=== PATIENT | male | born 1965 | race Caucasian/White ===

== ENCOUNTER 2018-01-21 16:01 | Outpatient (CLI) | payer BC ==
--- NOTE | 2018-01-22 08:59 | MRI ---
MRI OF THE RIGHT SHOULDER WITHOUT CONTRAST: Date: 01/21/18 INDICATION: Rotator cuff repair 9 years ago with concern for right shoulder reinjury. TECHNIQUE: Multiplanar, multisequence MR images were obtained of the right shoulder without IV contrast. No radi ographic or MR comparisons are available. FINDINGS: There is susceptibility artifact involving the greater tuberosity consistent with suture anchors from prior rotator cuff repair. There is a partial thickness high grade articular surface tear involving the posterior supraspinatus and anterior infraspinatus within the region of the conjoined tendon at t he footprint measuring 0.7 x 0.5 cm. This involves approximately 75% of the tendon thickness. There i s also a partial thickness Type II SLAP tear involving the posterior superior aspect of the glenoid l abrum. The glenoid articular surface appears within normal limits. No paralabral cyst is identified. There is mild AC joint osteoarthrosis. The biceps tendon is located. No muscular atrophy is evident. There is mild AC joint hypertrophy. IMPRESSION: 1. High grade partial thickness articular surface tear of the conjoined tendon at the footprint. 2. Type II SLAP tear involving the posterior superior aspect of the glenoid labrum. 3. Mild AC joint osteoarthrosis. POS: [facility]
== END 2018-01-21 16:02 | disposition home or self-care (01) ==
LOC: TBSIIMAG 16:01
PROVIDERS: ATTEND Orthopaedic Surgery
DX: M25.511 Pain in right shoulder (principal); S43.401A Unspecified sprain of right shoulder joint, initial encounter; M24.111 Other articular cartilage disorders, right shoulder

== ENCOUNTER 2019-09-01 14:43 | Outpatient (CLI) | payer BC ==
--- NOTE | 2019-09-01 15:28 | RAD ---
MRI CLEARANCE: RADIOGRAPH SKULL 1 VIEW DATE: 09/01/2019. HISTORY: A 54-year-old male scheduled for MRI. History of metallic foreign body removed from eye. FINDINGS: Single Water's view demonstrates no metallic foreign body in the orbits. IMPRESSION: The patient is cleared for MRI. POS: [facility]
--- NOTE | 2019-09-01 15:59 | MRI ---
MRI LUMBAR SPINE WITHOUT CONTRAST: INDICATIONS: Lumbar stenosis. Neurogenic claudication. COMPARISON: None. FINDINGS: There appear to be ribs present at what will be labeled as T12. This leaves five lumbar vertebrae how ever L5 is transitional. The lumbar vertebrae maintain normal height and alignment. There is mild loss of disk space at L5-S1. The other disk spaces are preserved. Slight anterolisthesis at L4-L5. At T12-L1 mild disk bulge flattens the thecal sac. No central canal or foraminal stenosis. At L1-L2 no significant disk bulge. Mild facet arthrosis. No central canal or foraminal stenosis. At L2-L3 no disk bulge, mild face arthrosis, no central canal or foraminal stenosis. At L3-L4 mild diffuse disk bulge flattens the thecal sac. There is evidence of a small annular fissur e. Mild to moderate facet hypertrophy. No significant central canal or foraminal stenosis. At L4-L5 there is slight anterolisthesis noted above. Mild diffuse disk bulge. Prominent facet hypert rophy at this level. No significant central canal or foraminal stenosis. At L5-S1 there is no significant disk bulge. L5 is transitional, as noted above. Facet hypertrophy is noted. IMPRESSION: 1. L5 is a transitional vertebra. 2. Slight anterolisthesis of L4-L5 with mild diffuse disk bulge. Very prominent facet hypertrophy at this level. There is contact with the exiting right L4 nerve root within the foramina from the promin ent facet hypertrophy. No significant foraminal stenosis. 3. See findings at other levels as described above. POS: [facility]
== END 2019-09-01 14:44 | disposition home or self-care (01) ==
LOC: BICMRI 14:43
PROVIDERS: ATTEND Specialist
DX: M48.061 Spinal stenosis, lumbar region without neurogenic claudication (principal); M43.16 Spondylolisthesis, lumbar region; M48.8X6 Other specified spondylopathies, lumbar region
CPT/HCPCS: 70210; 72148

== ENCOUNTER 2020-06-28 10:02 | Outpatient (CLI) | payer BC ==
--- NOTE | 2020-06-28 10:53 | CT ---
CT Abdomen W WO Con History: Liver lesion Comparison: Thoracic spine MRI July 02, 2020. Abdomen pelvis CT 2011 Findings: Lung bases are clear. No pericardial effusion. Diffuse hepatic steatosis. Corresponding to the mass within hepatic segment 6 is a well-defined flash filling hemangioma measuring up to 1 cm in size. There is also a similar flash filling hemangioma within hepatic segment 8 measuring 9 mm axial image 19. Similar hemangioma within hepatic segment 3 m easuring 1.5 cm. The aortic contour is nonaneurysmal. Pancreas, spleen, adrenal glands are normal. Portal vein is patent. No retroperitoneal periaortic adenopathy. The appendix is visualized and is normal. No acute osseous abnormality. Moderate facet arthrosis lowe r lumbar spine. Impression: Multiple hepatic hemangiomas correspond to the imaging findings from recent thoracic spin e MRI.
[2020-06-28] MEDS ORDERED: Iopamidol-370 76% 500 ML 1 ML ONE (12:54)
== END 2020-06-28 10:03 | disposition home or self-care (01) ==
LOC: BICCT 10:02
PROVIDERS: ATTEND Specialist
DX: K76.9 Liver disease, unspecified (principal); D18.03 Hemangioma of intra-abdominal structures
CPT/HCPCS: 74170; Q9967

== ENCOUNTER 2020-10-15 07:55 | Outpatient (CLI) | payer BC ==
--- NOTE | 2020-10-15 08:50 | MRI ---
MRI of thecervical spine: 10/15/2020 COMPARISON:None available HISTORY:Cervical radicular pain, neck pain, fall 3 weeks ago TECHNIQUE: Multiplanar multisequence MR imaging of thecervical spine without contrast Findings:The sagittal STIR imaging demonstrates no focal area of osseous marrow edema. No prevertebral soft tissue swelling is seen. No cervical spine anterolisthesis or retrolisthesis is appreciated. There is mild degenerative change involving the atlantoaxial interspace. C2-3: No central canal or neural foraminal stenosis. C3-4: No central canal or neural foraminal stenosis C4-5: Mild left facet hypertrophy. No central canal or neural foraminal stenosis. C5-6: There is disc space narrowing with disc bulge. There is a left paracentral disc extrusion with inferior migration abutting the ventral aspect of the cervical cord. This left paracentral disc extrusion measures approximately 6 mm in craniocaudal dimension and 5 mm in AP dimension with a moder ate degree of left lateral central canal stenosis. Mild bilateral neural foraminal stenosis on the basis of facet and uncovertebral osteophyte formation. C6-7: Minimal disc bulge. Bilateral facet hypertrophy. No significant central canal or neural foramin al stenosis. C7-T1: Mild bilateral facet hypertrophy. No significant central canal or neural foraminal stenosis. No focal area of abnormal signal intensity within the cervical cord. IMPRESSION: Disc bulge with a left paracentral disc extrusion leading to moderate central canal steno sis on the left at C5-6 as above.
== END 2020-10-15 07:56 | disposition home or self-care (01) ==
LOC: BICMRI 07:55
PROVIDERS: ATTEND Specialist
DX: M50.122 Cervical disc disorder at C5-C6 level with radiculopathy (principal); M48.02 Spinal stenosis, cervical region
CPT/HCPCS: 72141

== ENCOUNTER 2021-01-09 14:40 | Outpatient (CLI) | payer BC | END 2021-01-09 14:41 | disposition home or self-care (01) | LOC: BICRAD 14:40 | PROVIDERS: ATTEND Podiatrist | DX: M50.10 Cervical disc disorder with radiculopathy, unspecified cervical region (principal); M48.02 Spinal stenosis, cervical region; M79.672 Pain in left foot; M54.89 Other dorsalgia; M79.89 Other specified soft tissue disorders | CPT/HCPCS: 72050; 72072 ==

== ENCOUNTER 2021-09-04 08:52 | Emergency (ER) | payer BC, OTHER ==
[2021-09-04] MEDS ORDERED: traMADol HCl 50 MG TAB ONE (11:15)
[2021-09-04] MEDS ORDERED: Ibuprofen 800 MG TAB ONE (11:20)
== END 2021-09-04 11:55 | disposition home or self-care (01) ==
LOC: ERS 08:52
DX: S30.0XXA Contusion of lower back and pelvis, initial encounter (principal); W01.0XXA Fall on same level from slipping, tripping and stumbling without subsequent striking against object, initial encounter
CPT/HCPCS: 72072; 72100